=== PATIENT | female | born 1975 | race Caucasian/White ===

== ENCOUNTER 2018-10-24 07:31 | Emergency (ER) | payer OTHER ==
[2018-10-24 07:40] VITALS: BP 138/85
--- NOTE | 2018-10-24 08:26 | UC ---
Elbow Pain - HPI Summary HPI Summary: Was kicked by a horse yesterday evening. Struck her right arm. Now has elbow pain, swelling and bruising. Had slight tingling in the fingers initially but that has now resolved. - History of Current Complaint Chief Complaint: UCUpperExtremity Stated Complaint: ELBOW PAIN Time Seen by Provider: 10/24/18 07:38 Hx Obtained From: Patient Hx Last Menstrual Period: 10/17/18 Onset/Duration: Hours Severity Initially: Moderate Severity Currently: Moderate Pain Intensity: 2 Pain Scale Used: 0-10 Numeric Location Of Pain: Is Discrete @ - RIGHT ELBOW Character: Sharp Aggravating Factor(s): Movement Alleviating Factor(s): Rest Associated Signs And Symptoms: Positive: Swelling, Bruising - Allergies/Home Medications Allergies/Adverse Reactions: Allergies Allergy/AdvReac Type Severity Reaction Status Date / Time No Known Allergies Allergy Verified 10/24/18 07:40 Home Medications: Home Medications Ibuprofen TAB* [Motrin TAB* 600 MG] 400 mg PO Q8H PRN 10/24/18 [History] Loratadine [Claritin 10 MG CAP] 10 mg PO DAILY 10/24/18 [History Confirmed 10/24] PMH/Surg Hx/FS Hx/Imm Hx Previously Healthy: Yes - Surgical History Surgical History: Yes Surgery Procedure, Year, and Place: tonsilectomy - Family History Known Family History: Positive: None - Social History Alcohol Use: Occasionally Substance Use Type: None Smoking Status (MU): Never Smoked Tobacco Have You Smoked in the Last Year: No Household Exposure Type: Cigars Review of Systems All Other Systems Reviewed And Are Negative: Yes Constitutional: Positive: Negative Skin: Positive: Bruising Respiratory: Positive: Negative Cardiovascular: Positive: Negative Gastrointestinal: Positive: Negative Musculoskeletal: Positive: Arthralgia, Decreased ROM, Edema Physical Exam Triage Information Reviewed: Yes Appearance: Well-Appearing, No Pain Distress, Well-Nourished Vital Signs: Initial Vital Signs Temp 98.2 F 10/24/18 07:36 Pulse 70 10/24/18 07:36 Resp 16 10/24/18 07:36 BP 138/85 10/24/18 07:36 Pulse Ox 99 10/24/18 07:36 Vital Signs Reviewed: Yes Eyes: Positive: Conjunctiva Clear ENT: Positive: Hearing grossly normal Neck: Positive: Supple Respiratory: Positive: No respiratory distress, No accessory muscle use Cardiovascular: Positive: Pulses Normal Abdomen Description: Positive: Soft Musculoskeletal: Positive: ROM Limited @ - RIGHT ELBOW FLEXION, Edema @ - RIGHT ELBOW, Other: - MILDLY TENDER RIGHT ELBOW LATERALLY Neurological: Positive: Alert Psychological: Positive: Age Appropriate Behavior Skin: Positive: Other - SLIGHT BRUISING RIGHT ELBOW Diagnostics - Radiology RIGHT ELBOW XRAYS Radiology Interpretation Completed By: Radiologist Summary of Radiographic Findings: NO EVIDENCE FOR FRACTURE. Elbow Pain Course/Dx - Differential Dx/Diagnosis Provider Diagnosis: Contusion of right elbow Discharge - Sign-Out/Discharge Documenting (check all that apply): Patient Departure All imaging exams completed and their final reports reviewed: Yes - Discharge Plan Condition: Stable Disposition: HOME Patient Education Materials: Contusion in Adults (ED) Referrals: Dayna Levi MD [Primary Care Provider] - If Needed Felicia Montano MD [Medical Doctor] - If Needed Additional Instructions: XRAY TODAY NEGATIVE FOR FRACTURE OR DISLOCATION. YOUR SYMPTOMS SHOULD IMPROVE SIGNIFICANTLY OVER THE NEXT 1-2 WEEKS. IF YOU DO NOT IMPROVE EXPECTED FOLLOW- UP WITH YOUR PCP OR ORTHO. YOU MAY BENEFIT FROM REPEAT IMAGING AT THAT TIME. OTC IBUPROFEN OR ALEVE NEEDED FOR DISCOMFORT. REST, ICE, COMPRESS, ELEVATE. HONEY WRAP AND SLING NEEDED FOR SYMPTOM RELIEF. BE SURE TO GO THROUGH SLOW RANGE OF MOTION AND STRETCHING EXERCISES DAILY YOU ARE ABLE TO PREVENT STIFFENING UP AND MAKING THE DISCOMFORT WORSE. - Billing Disposition and Condition Condition: STABLE Disposition: Home
== END 2018-10-24 08:46 | disposition home or self-care (01) ==
LOC: UCEAST 07:31
DX: S50.01XA Contusion of right elbow, initial encounter (principal); W55.12XA Struck by horse, initial encounter; Y93.52 Activity, horseback riding; Y92.89 Other specified places as the place of occurrence of the external cause
CPT/HCPCS: 99203; G0463